=== PATIENT | female | born 1980 | race Caucasian/White ===

== ENCOUNTER → 2023-01-18 11:00 | Outpatient (CLI) | payer OTHER, SELFPAY ==
[2023-01-18 20:00] LABS: Basophils # 0.1 K/mm3 (0-0.2); Basophils % 0.6 % (0.1-2.0); Eosinophils # 0.2 K/mm3 (0.0-0.4); Eosinophils % 1.4 % (0.1-12.0); Hematocrit 47.9 % (37.0-47.0); Hemoglobin 14.7 g/dL (12.2-16.2); Lymphocytes # 2.3 K/mm3 (0.7-4.5); Lymphocytes % 22.6 % (10-50); Mean Corpuscular HGB Conc 30.7 g/dL (31.8-35.4); Mean Corpuscular Hemoglobin 31.4 pg (27.0-31.2); Mean Corpuscular Volume 102.3 fl (81-99); Mean Platelet Volume 9.6 fl (7.4-10.4); Monocytes # 0.5 K/mm3 (0.1-1.0); Monocytes % 4.8 % (1.7-9.3); Neutrophils # 7.3 K/mm3 (1.8-7.8); Neutrophils % 70.7 % (37.0-80.0); Platelet Count 231 K/mm3 (142-424); Red Blood Count 4.69 M/mm3 (4.20-5.40); Red Cell Distribution Width 12.8 % (11.5-17.5); White Blood Count 10.4 K/mm3 (4.8-10.8)
[2023-01-18 20:07] LABS: Alanine Aminotransferase 46 U/L (12-78); Albumin Level 4.3 g/dl (3.5-5.0); Albumin/Globulin Ratio 1.6 (1.1-1.8); Alkaline Phosphatase 300 U/L (38-126); Anion Gap 18.1 mEq/L (5-15); Aspartate Amino Transferase 30 U/L (14-36); Bilirubin,Total 0.2 mg/dl (0.2-1.3); Blood Urea Nitrogen 18 mg/dl (7-17); Calcium 10.1 mg/dl (8.4-10.2); Carbon Dioxide 22 mmol/L (22.0-30.0); Chloride 91 mmol/L (98-107); Chol/HDL Ratio 2.4 (1-3.5); Cholesterol 191 mg/dl (140-200); Estimated Glomerular Filt Rate 78 ml/min (>60); GFR (African American) 94 ML/MIN (>60); Globulin 2.7 g/dL (1.3-3.2); HDL Cholesterol 81 mg/dl (40-60); Potassium 4.1 mmoL/L (3.5-5.1); Sodium 127 mmol/L (136-145); Triglycerides 332 mg/dl (30-150); VLDL Cholesterol 66 mg/dL (0-40)
[2023-01-18 20:25] LABS: Glucose 664 mg/dl (74-100)
[2023-01-18 20:28] LABS: 25-OH Vitamin D, Total 33.9 ng/mL (30-100)
[2023-01-18 20:38] LABS: Thyroid Stimulating Hormone 1.22 uIU/mL (0.465-4.68)
[2023-01-18 21:47] LABS: Hemoglobin A1C 12.8 % (4.0-6.0)
[2023-01-18 21:48] LABS: Microalbumin < 6.000 mg/L (0-16.7)
[2023-01-18 22:05] LABS: Creatinine,Urine Random 10 mg/dL (Not Estab.)
== END ==
LOC: LAB.DROPOF 01-19 14:02
PROVIDERS: PCP Internal Medicine; Visit Provider Internal Medicine
DX: R73.09 Other abnormal glucose (principal); Z79.899 Other long term (current) drug therapy
CPT/HCPCS: 80053; 80061; 82043; 82306; 82570; 83036; 84443; 85025

== ENCOUNTER → 2023-01-24 13:46 | Outpatient (CLI) | payer OTHER, SELFPAY ==
[2023-01-24 12:29] LABS: Amphetamine/Metha Screen,Urine Negative ng/ml (<1000)
[2023-01-24 12:31] LABS: Barbiturates Screen,Urine Negative ng/ml (<200); Cannabinoid Screen,Urine Negative ng/ml (<50)
[2023-01-24 12:32] LABS: Benzodiazepines Screen,Urine Negative ng/ml (<200)
[2023-01-24 12:33] LABS: Cocaine Screen,Urine Negative ng/ml (<300); Methadone Screen,Urine Negative ng/ml (<300)
[2023-01-24 12:34] LABS: Opiate Screen,Urine Negative ng/ml (<300); Phencyclidine Screen,Urine Negative ng/ml (<25)
== END ==
PROVIDERS: PCP Internal Medicine; Visit Provider Internal Medicine
DX: Z79.899 Other long term (current) drug therapy (principal)
CPT/HCPCS: 80305